=== PATIENT | female | born 1945 | race Hispanic/Latino ===

== ENCOUNTER 2017-07-05 07:31 | Day surgery (SDC) | payer MEDICARE, BC ==
[2017-07-05 08:53] VITALS: O2SAT 100
[2017-07-05] MEDS ORDERED: Propofol 10 mg/ml Inj (20 ML) ONE (09:32)
--- NOTE | 2017-07-05 09:35 | CP.SDSHP ---
Same Day Surgery H & P - History Proposed Procedure: colonoscopy Pre-Op Diagnosis: screening for colon cancer. h/o Breast cancer - Previous Medical/Surgical History Misc: Other (Breast Cancer) Previous Surgical History: Right lumpectomy 2016. Cataracts. Lap Cholecystectomy - Allergies Allergies: Allergies No Known Allergies Allergy (Verified 07/05/17 08:35) - Physical Exam Vital Signs: Vital Signs 07/05/17 08:20 Temperature 98.2 F Pulse Rate 78 Respiratory 19 Rate Blood Pressure 139/66 O2 Sat by Pulse 100 Oximetry Mental Status: Alert & Oriented x3 Neuro: WNL Heart: WNL Lungs: WNL GI: WNL - Impression Impression: Screening for colon cancer. h/o breast cancer Pt. Evaluated Today:Candidate for Anesthesia & Procedure: Yes - Date & Time Date: 07/05/17 Time: 09:35 Short Stay Discharge - Short Stay Discharge Admitting Diagnosis/Reason for Visit: ENCOUNTER FOR SCREENING Disposition: HOME/ ROUTINE
[2017-07-05 10:24] VITALS: TEMP 97.7
[2017-07-05 11:19] VITALS: BP 129/74; PULSE 67; RESP 11
== END 2017-07-05 11:10 | disposition home or self-care (01) ==
LOC: C.ENDO 07:31
PROVIDERS: ATTEND Internal Medicine Gastroenterology
DX: Z12.11 Encounter for screening for malignant neoplasm of colon (principal); Z85.3 Personal history of malignant neoplasm of breast; K62.1 Rectal polyp; K64.8 Other hemorrhoids
CPT/HCPCS: 45380; 88305; J2704